=== PATIENT | female | born 1985 | race Caucasian/White ===

== ENCOUNTER 2021-04-14 17:48 | Emergency (ER) | payer OTHER ==
[~2021-04-14] VITALS: Ht 162.6 cm; Wt 54.4 kg
--- NOTE | 2021-04-14 18:10 | NUR ---
Patient came in to the er c/o jaw pain. On room air, breathing evenly and unlabored. Connected to the monitor and pulse ox. Kept comfortable, will continue to monitor accordingly.
[2021-04-14] MEDS ORDERED: FENTANYL PF 100MCG/2ML AMPUL ONE (18:13)
[2021-04-14] MEDS ORDERED: MIDAZOLAM HCL 5 MG/5ML VIAL ONE (18:14)
--- NOTE | 2021-04-14 18:20 | NUR ---
Jaw reduction under moderate sedation done, RT, RN, MD at bedside.
[2021-04-14] MEDS ORDERED: FENTANYL PF 100MCG/2ML AMPUL IV ONE (18:30)
[2021-04-14] MEDS ORDERED: MIDAZOLAM HCL 2 MG/2ML VIAL IV ONE (18:30)
[2021-04-14 19:01] VITALS: BP 132/88
--- NOTE | 2021-04-14 19:01 | NUR ---
Patient discharged to home in stable condition. Written and verbal after care instructions given. Patient verbalizes understanding of instruction.IV removed. Catheter intact and site benign. Pressure and 4x4 applied to site. No bleeding noted.
== END 2021-04-14 19:01 | disposition home or self-care (01) ==
LOC: ER 17:48
DX: S03.00XA Dislocation of jaw, unspecified side, initial encounter (principal); X58.XXXA Exposure to other specified factors, initial encounter; Y93.89 Activity, other specified; Y92.89 Other specified places as the place of occurrence of the external cause; Y99.8 Other external cause status
CPT/HCPCS: 21480; 99152; 99285; A6403; J2250; J3010; G0500